=== PATIENT | female | born 1995 | race Caucasian/White ===

== ENCOUNTER 2019-05-03 10:29 | Emergency (ER) | payer MEDICAID, OTHER ==
[~2019-05-03] VITALS: Ht 152.4 cm; Wt 49.0 kg
[2019-05-03 10:30] VITALS: BP_SYST 125
[2019-05-03] MEDS ORDERED: ONDANSETRON HCL 4 MG/2 ML VIAL IVP ONE (11:00)
[2019-05-03] MEDS ORDERED: NACL 0.9% 1,000 ML IV ONE (11:00)
[2019-05-03] MEDS ORDERED: MORPHINE 2 MG/ML INJ. SYRINGE IVP ONE (11:15)
[2019-05-03 11:29] LABS: BASOPHILS # (AUTO) 0.1 K/uL (0.0-0.2); BASOPHILS % (AUTO) 0.4 % (0.0-2.0); EOSINOPHILS % (AUTO) 0.4 % (0.0-4.0); HEMATOCRIT 33.1 % (36-48); HEMOGLOBIN 10.7 g/dL (12.0-16.0); LYMPHOCYTES # (AUTO) 1.4 K/uL (1.0-5.5); LYMPHOCYTES % (AUTO) 11.4 % (20.5-51.5); MEAN CORPUSCULAR HEMOGLOBIN 25 pg (27-31); MEAN CORPUSCULAR HGB CONC 33 % (32-36); MEAN CORPUSCULAR VOLUME 78 fL (79.0-98.0); MONOCYTES # (AUTO) 0.7 K/uL (0.0-1.0); MONOCYTES % (AUTO) 5.2 % (1.7-9.3); NEUTROPHILS # (AUTO) 10.4 K/uL (1.8-7.7); NEUTROPHILS % (AUTO) 82.6 % (40.0-70.0); RED BLOOD CELL COUNT(AUTO) 4.26 MIL/uL (4.2-6.2); RED CELL DISTRIBUTION WIDTH 14.4 % (9.0-15.0); WHITE BLOOD COUNT (AUTO) 12.6 K/uL (4.8-10.8)
[2019-05-03 11:57] LABS: CALCIUM 8.8 mg/dL (8.4-11.0); CREATININE 0.91 mg/dL (0.55-1.30); POTASSIUM 3.3 mmol/L (3.5-5.1)
[2019-05-03 12:00] LABS: ALBUMIN 3.9 g/dL (3.4-4.8); TOTAL BILIRUBIN 0.3 mg/dL (0.0-1.0)
[2019-05-03 12:07] LABS: PLATELET COUNT (AUTO) 171 K/uL (130-430)
[2019-05-03 13:07] LABS: BILIRUBIN,URINE NEGATIVE (NEGATIVE); BLOOD, URINE 3+ (NEGATIVE); CLARITY/URINE HAZY (CLEAR); COLOR,URINE YELLOW (YELLOW); GLUCOSE,URINE NEGATIVE (NEGATIVE); KETONES,URINE 2+ (NEGATIVE); LEUKOCYTE ESTERASE ,URINE NEGATIVE (NEGATIVE); NITRITE, URINE NEGATIVE (NEGATIVE); PROTEIN URINE NEGATIVE (NEGATIVE); UROBILINOGEN,URINE 0.2 (0.2-1.0)
[2019-05-03 13:15] LABS: BACTERIA,URINE MODERATE /HPF (None Seen)
[2019-05-03 13:16] LABS: MUCUS,URINE 1+ /LPF (None Seen); URINE AMORPHOUS URATE 1+ /HPF (None Seen)
[2019-05-03] MEDS ORDERED: CARI3CAP PO (14:02)
[2019-05-03] MEDS ORDERED: ESCI10TA PO (14:02)
[2019-05-03] MEDS ORDERED: MELO15TA13 PO (14:02)
[2019-05-03] MEDS ORDERED: KETOROLAC TROMETHAMINE 30 MG VIAL IVP ONE (14:30)
[2019-05-03 14:55] VITALS: BP_SYST 132
== END 2019-05-03 14:55 | disposition home or self-care (01) ==
LOC: SED 10:29
DX: N23 Unspecified renal colic (principal); Z79.899 Other long term (current) drug therapy
CPT/HCPCS: 36415; 74176; 76770; 80053; 81000; 81025; 85025; 87086; 96361; 96374; 96375; 99284; J1885; J2270; J2405; J7030; 81002

== ENCOUNTER 2021-11-28 15:04 | Emergency (ER) | payer OTHER ==
[~2021-11-28] VITALS: Ht 152.4 cm; Wt 53.1 kg
[~2021-11-28 15:04] MED LIST: CARI3CAP PO; ESCI10TA PO; MELO15TA13 PO
[2021-11-28 15:19] VITALS: BP_SYST 122
[2021-11-28] MEDS ORDERED: IBUP-1969 PO (16:17)
[2021-11-28 16:34] VITALS: BP_SYST 127
== END 2021-11-28 16:35 | disposition home or self-care (01) ==
LOC: SED 15:04
DX: M75.21 Bicipital tendinitis, right shoulder (principal)
CPT/HCPCS: 73030; 81025; 99283

== ENCOUNTER 2022-08-12 15:54 | Emergency (ER) | payer SELFPAY ==
[~2022-08-12] VITALS: Ht 152.4 cm; Wt 45.4 kg
[~2022-08-12 15:54] MED LIST changes: +IBUP-1969 PO
[2022-08-12 15:55] VITALS: BP_SYST 114
[2022-08-12] MEDS ORDERED: PRED20TA PO (19:05)
[2022-08-12] MEDS ORDERED: ALBMDI INH (19:05)
[2022-08-12] MEDS ORDERED: BENZ100C92 PO (19:06)
[2022-08-12] MEDS ORDERED: ONDA-8 TL (19:06)
[2022-08-12 20:37] VITALS: BP_SYST 114
== END 2022-08-12 19:25 | disposition home or self-care (01) ==
LOC: SED 15:54
DX: J20.9 Acute bronchitis, unspecified (principal); B34.9 Viral infection, unspecified; R50.9 Fever, unspecified; R11.2 Nausea with vomiting, unspecified; R05.9 Cough, unspecified; Z79.899 Other long term (current) drug therapy
CPT/HCPCS: 99283